=== PATIENT | male | born 1960 | race Caucasian/White ===

== ENCOUNTER 2016-07-02 16:06 | Emergency (ER) | payer MEDICARE, OTHER ==
[~2016-07-02 16:06] MED LIST: AMBIEN10 MG PO; ASPIRIN EC81 MG PO; COLACE 100MG C100 MG PO; COZAAR100 MG PO; DURAGESIC 25 MCG1 EA TD; FENOFIBRATE200 MG PO; HUMALOG100 UNIT/2 SQ; IBUPROFEN400 MG PO; LANTUS100 UNIT/1 SQ; LEVOXYL200 MCG PO; LIPITOR80 MG PO; MIRALAX PACK 171 PKT PO; NEURONTIN 300300 MG PO; NORVASC 5 MG TAB5 MG PO; OSTERA TABLET1 EACH PO; PERCOCET 10-321 EACH PO; TIZANIDINE HCL4 M1 PO
[2016-07-02 19:09] LABS: HEMOGLOBIN 14.3 gm/dl (14.0-17.5); RED BLOOD COUNT 4.43 M/UL (4.20-5.50); WHITE BLOOD COUNT 12.7 K/UL (4.5-11.0)
== END 2016-07-02 21:30 | disposition home or self-care (01) ==
LOC: ER1 16:06
PROVIDERS: Emergency Medicine
DX: J84.9 Interstitial pulmonary disease, unspecified (principal); E11.9 Type 2 diabetes mellitus without complications
CPT/HCPCS: 36415; 80048; 82962; 83690; 85025; 96372; 99285; J1815; J7030; J7050; Q9965

== ENCOUNTER 2020-03-22 12:53 | Inpatient (IN) | payer MEDICARE, OTHER ==
[~2020-03-22] VITALS: Ht 165.1 cm; Wt 88.5 kg
[~2020-03-22 12:53] MED LIST changes: -AMBIEN10 MG PO; +AMBIEN5 MG PO; +CYCLOBENZAPRINE10 MG PO; -NORVASC 5 MG TAB5 MG PO; +NORVASC10 MG PO
[2020-03-22 14:16] LABS: RED BLOOD COUNT 1.9 M/UL (4.20-5.50); WHITE BLOOD COUNT 7.9 K/UL (4.5-11.0)
[2020-03-22 14:35] LABS: BUN/CREATININE RATIO 39 (0-10)
[2020-03-22 14:55] LABS: HEMOGLOBIN 6.1 gm/dl (14.0-17.5)
[2020-03-22] MEDS ORDERED: HYDROCODON-ACE1 EAC6 PO (19:34)
[2020-03-22] MEDS ORDERED: CELEBREX 200MG200 MG PO (19:35)
[2020-03-22] MEDS ORDERED: TRAZODONE HCL100 MG PO (19:38)
[2020-03-22] MEDS ORDERED: LYRICA100 MG PO (19:46)
[2020-03-22] MEDS ORDERED: TRULICITY1.5 MG/0.5 SQ (19:47)
[2020-03-22] MEDS ORDERED: VITAMIN D325 MCG PO (19:49)
[2020-03-23 01:43] LABS: ADENOVIRUS F 40/41 Not Detected (Negative); ASTROVIRUS Not Detected (Negative); CAMPYLOBACTER Not Detected (Negative); CRYPTOSPORIDIUM Not Detected (Negative); E.COLI 0157 Not Detected (Negative); ENTAMOEBA HISTOLYTICA Not Detected (Negative); ENTEROAGGREGATIVE E.COLI (EAEC Not Detected (Negative); ENTEROPATHOGENIC E.COLI (EPEC) Not Detected (Negative); ENTEROTOXIGENIC E.COLI (ETEC) Not Detected (Negative); GIARDIA LAMBLIA Not Detected (Negative); NOROVIRUS GI/GII Not Detected (Negative); PLESIOMONAS SHIGELLOIDES Not Detected (Negative); ROTOVIRUS A Not Detected (Negative); SALMONELLA Not Detected (Negative); SAPOVIRUS Not Detected (Negative); SHIG/ENTEROINVAS.ECOLI (EIEC) Not Detected (Negative); SHIGA-LIK TOX.PRO.E.COLI (STEC Not Detected (Negative); VIBRIO Not Detected (Negative); VIBRIO CHOLERAE Not Detected (Negative); YERSINIA ENTEROCOLITICA Not Detected (Negative)
[2020-03-23 06:17] LABS: BUN/CREATININE RATIO 36 (0-10)
[2020-03-23 07:21] LABS: WHITE BLOOD COUNT 8.1 K/UL (4.5-11.0)
[2020-03-23 07:47] LABS: RED BLOOD COUNT 2.22 M/UL (4.20-5.50)
[2020-03-23 07:48] LABS: HEMOGLOBIN 6.7 gm/dl (14.0-17.5)
[2020-03-23 11:41] LABS: CLOSTRIDIUM DIFFICILE TOX A/B DETECTED (Negative)
[2020-03-23 22:27] LABS: HEMOGLOBIN 8.5 gm/dl (14.0-17.5)
[2020-03-24 05:37] LABS: HEMOGLOBIN 8.4 gm/dl (14.0-17.5)
[2020-03-24 05:42] LABS: RED BLOOD COUNT 2.69 M/UL (4.20-5.50)
[2020-03-24 05:52] LABS: BUN/CREATININE RATIO 19 (0-10)
--- NOTE | 2020-03-26 03:42 | NUR ---
PT K+ RECHECK IS 3.0 FOR THE THIRD TIME IN A ROW. I EXPLAINED TO THE PT THAT K+ TAKEN BY MOUTH IS SOMETIMES ABSORBED BY THE BODY BETTER AND MAY HELP TO BRING HIS K+ LEVEL UP. PT STATES, "I DON'T GIVE A WHAT IS BETTER, I SAID NO AND THAT'S THE FINAL WORD." I TRIED TO CALL DR. MANCERA TO REPORT THE CRITICAL K+ WITH NO ANSWER.
[2020-03-26 09:41] LABS: HEMOGLOBIN 9.7 gm/dl (14.0-17.5); WHITE BLOOD COUNT 8.1 K/UL (4.5-11.0)
[2020-03-26 09:45] LABS: RED BLOOD COUNT 3.08 M/UL (4.20-5.50)
[2020-03-26 10:10] LABS: BUN/CREATININE RATIO 12 (0-10)
[2020-03-27 04:11] LABS: HEMOGLOBIN 8.2 gm/dl (14.0-17.5); WHITE BLOOD COUNT 8.2 K/UL (4.5-11.0)
[2020-03-27 04:15] LABS: RED BLOOD COUNT 2.61 M/UL (4.20-5.50)
[2020-03-27 04:38] LABS: BUN/CREATININE RATIO 14 (0-10)
[2020-03-27 09:27] LABS: HEMOGLOBIN 9.3 gm/dl (14.0-17.5)
[2020-03-27] MEDS ORDERED: VANCOMYCIN HCL125 MG PO (09:31)
[2020-03-27] MEDS ORDERED: PHENERGAN 25 MG25 M1 PO ×2 (09:31→09:38)
[2020-03-27] MEDS ORDERED: ZOFRAN4 MG PO (09:38)
[2020-03-27] MEDS ORDERED: PERCOCET 7.5-31 EACH PO ×2 (09:38→09:41)
[2020-03-27] MEDS ORDERED: PROTONIX40 MG PO (09:55)
== END 2020-03-27 12:36 | disposition home or self-care (01) | DRG 372 ==
LOC: ER1 12:53 → M/S 18:04 → CDU 18:04 → M/S 23:30
PROVIDERS: Emergency Medicine; Internal Medicine; Physician Assistant; ADMIT Internal Medicine
PROC: 30233N1 Transfusion of Nonautologous Red Blood Cells into Peripheral Vein, Percutaneous Approach (ICD-10-PCS; principal; 2020-03-22)
PROC: 30233N1 Transfusion of Nonautologous Red Blood Cells into Peripheral Vein, Percutaneous Approach (ICD-10-PCS; 2020-03-23)
DX: A04.72 Enterocolitis due to Clostridium difficile, not specified as recurrent (principal); D62 Acute posthemorrhagic anemia; Z20.822 Contact with and (suspected) exposure to COVID-19; G89.29 Other chronic pain; M54.9 Dorsalgia, unspecified; E78.5 Hyperlipidemia, unspecified; E66.9 Obesity, unspecified; E03.9 Hypothyroidism, unspecified; I10 Essential (primary) hypertension; G47.00 Insomnia, unspecified; E11.40 Type 2 diabetes mellitus with diabetic neuropathy, unspecified; E55.9 Vitamin D deficiency, unspecified; E87.6 Hypokalemia; Z79.890 Hormone replacement therapy; Z90.49 Acquired absence of other specified parts of digestive tract; Z79.4 Long term (current) use of insulin; Z68.32 Body mass index [BMI] 32.0-32.9, adult; Z85.038 Personal history of other malignant neoplasm of large intestine; Z79.899 Other long term (current) drug therapy
CPT/HCPCS: 36415; 36430; 80048; 80053; 82550; 82553; 82962; 83036; 83735; 84132; 84484; 85014; 85018; 85025; 85027; 86850; 86900; 86901; 86920; 87040; 87324; 87449; 87507; 87635; 90471; 96365; 96372; 96375; 96376; 99284; C9113; J0696; J1170; J2405; J2550; J7050; P9016; Q9967

== ENCOUNTER 2021-06-22 18:10 | Inpatient (IN) | payer MEDICARE, OTHER ==
[~2021-06-22] VITALS: Ht 165.1 cm; Wt 86.2 kg
[~2021-06-22 18:10] MED LIST changes: +CELEBREX 200MG200 MG PO; -COZAAR100 MG PO; +FENOFIBRATE160 MG PO; -FENOFIBRATE200 MG PO; -HUMALOG100 UNIT/2 SQ; +HUMALOG100 UNIT/3 SC; +HYDROCODON-ACE1 EAC6 PO; +LEVOXYL150 MCG PO; -LEVOXYL200 MCG PO; +LOSARTAN-HCTZ1 EACH PO; +LYRICA100 MG PO; +PERCOCET 7.5-31 EACH PO; +PHENERGAN 25 MG25 M1 PO; +PROTONIX40 MG PO; +TRAZODONE HCL50 MG PO; +TRULICITY1.5 MG/0.5 SQ; +VANCOMYCIN HCL125 MG PO; +VITAMIN D325 MCG PO; +ZOFRAN4 MG PO
[2021-06-22 19:01] LABS: HEMOGLOBIN 15.2 gm/dl (14.0-17.5); RED BLOOD COUNT 4.79 M/UL (4.20-5.50); WHITE BLOOD COUNT 5.9 K/UL (4.5-11.0)
[2021-06-22 19:29] LABS: BUN/CREATININE RATIO 14 (0-10)
[2021-06-23] MEDS ORDERED: BUSPIRONE HCL5 MG PO (13:47)
[2021-06-23] MEDS ORDERED: AMITRIPTYLINE H75 MG PO (13:47)
[2021-06-23] MEDS ORDERED: CITALOPRAM HBR40 MG PO (13:48)
[2021-06-23] MEDS ORDERED: FLONASE 0.05% N16 GM (13:49)
[2021-06-23] MEDS ORDERED: FISH OIL 1,0001 EAC1 PO (13:50)
[2021-06-23] MEDS ORDERED: ZOLPIDEM TARTRAT5 MG PO (13:51)
[2021-06-23] MEDS ORDERED: PROTONIX40 MG PO (13:52)
[2021-06-23] MEDS ORDERED: OXYCODON-ACETA1 EAC1 PO (13:57)
[2021-06-23] MEDS ORDERED: ONDANSETRON HCL4 MG PO (13:59)
[2021-06-23] MEDS ORDERED: FLOMAX 0.4 MG0.4 MG PO (14:00)
[2021-06-24 04:34] LABS: BUN/CREATININE RATIO 16 (0-10)
[2021-06-24 04:41] LABS: HEMOGLOBIN 13.4 gm/dl (14.0-17.5); RED BLOOD COUNT 4.2 M/UL (4.20-5.50); WHITE BLOOD COUNT 4.4 K/UL (4.5-11.0)
[2021-06-25 06:39] LABS: HEMOGLOBIN 13.1 gm/dl (14.0-17.5); RED BLOOD COUNT 4.21 M/UL (4.20-5.50)
[2021-06-25 07:11] LABS: BUN/CREATININE RATIO 12 (0-10)
--- NOTE | 2021-06-25 10:48 | NUR ---
PATIENT STATED PAIN MEDICATION WAS INEFFECTIVE, RN MADE DR. CASTRO AWARE. MD STATED HE WOULD ADDRESS PATIENT CONCERNS WITH PATIENT.
[2021-06-26 04:01] LABS: BUN/CREATININE RATIO 13 (0-10)
[2021-06-26 07:08] LABS: HEMOGLOBIN 12.4 gm/dl (14.0-17.5); RED BLOOD COUNT 4.03 M/UL (4.20-5.50)
[2021-06-27 03:30] LABS: HEMOGLOBIN 12.8 gm/dl (14.0-17.5); RED BLOOD COUNT 4.09 M/UL (4.20-5.50); WHITE BLOOD COUNT 4.9 K/UL (4.5-11.0)
[2021-06-27 03:54] LABS: BUN/CREATININE RATIO 13 (0-10)
[2021-06-28 06:19] LABS: HEMOGLOBIN 12.9 gm/dl (14.0-17.5); RED BLOOD COUNT 4.02 M/UL (4.20-5.50); WHITE BLOOD COUNT 4.5 K/UL (4.5-11.0)
[2021-06-28 06:44] LABS: BUN/CREATININE RATIO 15 (0-10)
[2021-06-29 03:49] LABS: HEMOGLOBIN 12.6 gm/dl (14.0-17.5); RED BLOOD COUNT 3.98 M/UL (4.20-5.50)
[2021-06-29 03:52] LABS: WHITE BLOOD COUNT 5.9 K/UL (4.5-11.0)
[2021-06-29 04:09] LABS: BUN/CREATININE RATIO 17 (0-10)
[2021-06-29] MEDS ORDERED: TRAMADOL HCL50 MG PO (14:16)
== END 2021-06-29 16:20 | disposition home or self-care (01) | DRG 439 ==
LOC: ER1 18:10 → CDU 06-23 01:50 → MED SURG 4 06-23 02:14
PROVIDERS: Emergency Medicine; Internal Medicine; ADMIT Internal Medicine
DX: K85.90 Acute pancreatitis without necrosis or infection, unspecified (principal); E87.2 Acidosis; E66.9 Obesity, unspecified; E11.9 Type 2 diabetes mellitus without complications; Z20.822 Contact with and (suspected) exposure to COVID-19; M54.9 Dorsalgia, unspecified; G89.29 Other chronic pain; E78.5 Hyperlipidemia, unspecified; E03.9 Hypothyroidism, unspecified; E55.9 Vitamin D deficiency, unspecified; K21.9 Gastro-esophageal reflux disease without esophagitis; N40.0 Benign prostatic hyperplasia without lower urinary tract symptoms; D64.9 Anemia, unspecified; I10 Essential (primary) hypertension; K43.9 Ventral hernia without obstruction or gangrene; Z85.038 Personal history of other malignant neoplasm of large intestine; Z98.890 Other specified postprocedural states; Z68.31 Body mass index [BMI] 31.0-31.9, adult; Z93.2 Ileostomy status
CPT/HCPCS: 36415; 71045; 80048; 80053; 80061; 81001; 82150; 82550; 82553; 82962; 83036; 83690; 83735; 84100; 84484; 85025; 86140; 93005; 96374; 96375; 96376; 99285; C9113; J1650; J2270; J2405; J7030; Q9967; U0002

== ENCOUNTER 2021-07-04 14:07 | Emergency (ER) | payer MEDICARE, OTHER ==
[~2021-07-04 14:07] MED LIST changes: +AMITRIPTYLINE H75 MG PO; +BUSPIRONE HCL5 MG PO; +CITALOPRAM HBR40 MG PO; +FISH OIL 1,0001 EAC1 PO; +FLOMAX 0.4 MG0.4 MG PO; +FLONASE 0.05% N16 GM; +ONDANSETRON HCL4 MG PO; +OXYCODON-ACETA1 EAC1 PO; +TRAMADOL HCL50 MG PO; +ZOLPIDEM TARTRAT5 MG PO
[2021-07-04 15:10] LABS: HEMOGLOBIN 13.9 gm/dl (14.0-17.5); RED BLOOD COUNT 4.32 M/UL (4.20-5.50); WHITE BLOOD COUNT 6.2 K/UL (4.5-11.0)
[2021-07-04 15:41] LABS: BUN/CREATININE RATIO 23 (0-10)
== END 2021-07-04 18:20 | disposition home or self-care (01) ==
LOC: ER1 14:07
PROVIDERS: Physician Assistant
DX: R10.9 Unspecified abdominal pain (principal); E11.65 Type 2 diabetes mellitus with hyperglycemia; R10.812 Left upper quadrant abdominal tenderness; I10 Essential (primary) hypertension; E78.5 Hyperlipidemia, unspecified
CPT/HCPCS: 71045; 80053; 82150; 82550; 82553; 82962; 83690; 84484; 85025; 93005; 96374; 96375; 99284; J2270; J2405

== ENCOUNTER 2021-07-11 14:49 | Inpatient (IN) | payer MEDICARE, OTHER ==
[~2021-07-11] VITALS: Ht 165.1 cm; Wt 88.5 kg
[~2021-07-11 14:49] MED LIST changes: -NORVASC10 MG PO; +NORVASC5 MG PO
[2021-07-11 16:22] LABS: HEMOGLOBIN 14.3 gm/dl (14.0-17.5); RED BLOOD COUNT 4.43 M/UL (4.20-5.50); WHITE BLOOD COUNT 8.8 K/UL (4.5-11.0)
[2021-07-11 16:43] LABS: BUN/CREATININE RATIO 29 (0-10)
[2021-07-12] MEDS ORDERED: ROXICODONE TAB 55 MG PO (18:28)
[2021-07-13 03:33] LABS: HEMOGLOBIN 13.1 gm/dl (14.0-17.5); RED BLOOD COUNT 4.06 M/UL (4.20-5.50)
[2021-07-13 03:40] LABS: WHITE BLOOD COUNT 6.2 K/UL (4.5-11.0)
[2021-07-13 03:43] LABS: BUN/CREATININE RATIO 31 (0-10)
[2021-07-15 03:16] LABS: HEMOGLOBIN 13.4 gm/dl (14.0-17.5); RED BLOOD COUNT 4.21 M/UL (4.20-5.50)
[2021-07-15 03:31] LABS: WHITE BLOOD COUNT 4.2 K/UL (4.5-11.0)
[2021-07-15 03:37] LABS: BUN/CREATININE RATIO 16 (0-10)
[2021-07-15 11:50] LABS: BUN/CREATININE RATIO 14 (0-10)
[2021-07-16 02:54] LABS: HEMOGLOBIN 13.1 gm/dl (14.0-17.5); RED BLOOD COUNT 4.11 M/UL (4.20-5.50); WHITE BLOOD COUNT 4.9 K/UL (4.5-11.0)
[2021-07-16 03:48] LABS: BUN/CREATININE RATIO 10 (0-10)
[2021-07-17 06:43] LABS: BUN/CREATININE RATIO 9 (0-10)
[2021-07-17] MEDS ORDERED: AMITRIPTYLINE H75 MG PO (09:36)
[2021-07-17] MEDS ORDERED: BUSPIRONE HCL5 MG PO (09:36)
[2021-07-17] MEDS ORDERED: COZAAR 50MG TAB50 MG PO (09:36)
[2021-07-17] MEDS ORDERED: PROTONIX40 MG PO (09:36)
[2021-07-17] MEDS ORDERED: FENOFIBRATE160 MG PO (09:36)
[2021-07-17] MEDS ORDERED: CITALOPRAM HBR40 MG PO (09:36)
[2021-07-17] MEDS ORDERED: LIPITOR80 MG PO (09:36)
[2021-07-17] MEDS ORDERED: LEVOXYL150 MCG PO (09:36)
[2021-07-17] MEDS ORDERED: FLOMAX 0.4 MG0.4 MG PO (09:36)
[2021-07-17] MEDS ORDERED: AMLODIPINE BESYL5 MG PO (09:36)
== END 2021-07-17 11:58 | disposition home or self-care (01) | DRG 440 ==
LOC: ER1 14:49 → CDU 07-12 06:04 → MED SURG 4 07-12 06:04
PROVIDERS: Internal Medicine; Physician Assistant; ADMIT Internal Medicine
DX: K85.00 Idiopathic acute pancreatitis without necrosis or infection (principal); K43.9 Ventral hernia without obstruction or gangrene; E78.5 Hyperlipidemia, unspecified; I10 Essential (primary) hypertension; K86.1 Other chronic pancreatitis; E66.9 Obesity, unspecified; E03.9 Hypothyroidism, unspecified; E78.1 Pure hyperglyceridemia; E11.40 Type 2 diabetes mellitus with diabetic neuropathy, unspecified; K76.0 Fatty (change of) liver, not elsewhere classified; F41.9 Anxiety disorder, unspecified; E11.65 Type 2 diabetes mellitus with hyperglycemia; Z85.038 Personal history of other malignant neoplasm of large intestine; Z79.899 Other long term (current) drug therapy; Z98.890 Other specified postprocedural states; Z93.2 Ileostomy status; Z79.4 Long term (current) use of insulin; Z68.32 Body mass index [BMI] 32.0-32.9, adult
CPT/HCPCS: 36415; 76705; 80048; 80053; 81001; 82150; 82550; 82553; 82962; 83690; 83735; 84484; 85025; 85027; 93005; 96372; 96374; 96375; 96376; 99285; G0378; J1170; J1650; J2270; J2405; J7030; Q9967; U0002

== ENCOUNTER 2021-11-05 12:45 | Emergency (ER) | payer MEDICARE, OTHER | END 2021-11-05 16:09 | disposition left against medical advice (07) | LOC: ER1 12:45 | DX: Z53.21 Procedure and treatment not carried out due to patient leaving prior to being seen by health care provider (principal) ==

== ENCOUNTER → 2021-11-05 | Outpatient (CLI) | payer MEDICARE, OTHER ==
[~2021-11-05] MED LIST changes: +AMLODIPINE BESYL5 MG PO; +COZAAR 50MG TAB50 MG PO; +ROXICODONE TAB 55 MG PO
[2021-11-05 12:55] LABS: HEMOGLOBIN 16.4 gm/dl (14.0-17.5); RED BLOOD COUNT 4.87 M/UL (4.20-5.50); WHITE BLOOD COUNT 6.1 K/UL (4.5-11.0)
[2021-11-05 13:24] LABS: BUN/CREATININE RATIO 17 (0-10)
== END ==
LOC: LAB 12:21
PROVIDERS: Nurse Practitioner Family
DX: I10 Essential (primary) hypertension (principal); N40.0 Benign prostatic hyperplasia without lower urinary tract symptoms; E53.8 Deficiency of other specified B group vitamins; E55.9 Vitamin D deficiency, unspecified; M54.50 Low back pain, unspecified; G89.29 Other chronic pain
CPT/HCPCS: 36415; 80053; 80061; 82150; 82607; 83690; 84153; 84439; 84443; 85025

== ENCOUNTER 2021-12-04 07:51 | Emergency (ER) | payer MEDICARE, OTHER ==
[2021-12-04 09:14] LABS: HEMOGLOBIN 14.8 gm/dl (14.0-17.5); RED BLOOD COUNT 4.48 M/UL (4.20-5.50); WHITE BLOOD COUNT 6.1 K/UL (4.5-11.0)
[2021-12-04 09:37] LABS: BUN/CREATININE RATIO 22 (0-10)
== END 2021-12-04 11:15 | disposition home or self-care (01) ==
LOC: ER1 07:51
PROVIDERS: Nurse Practitioner
DX: S06.0X0A Concussion without loss of consciousness, initial encounter (principal); S00.81XA Abrasion of other part of head, initial encounter; I11.9 Hypertensive heart disease without heart failure; E11.9 Type 2 diabetes mellitus without complications; W10.9XXA Fall (on) (from) unspecified stairs and steps, initial encounter; Y92.009 Unspecified place in unspecified non-institutional (private) residence as the place of occurrence of the external cause
CPT/HCPCS: 70450; 72125; 73030; 80053; 82140; 82550; 82553; 84484; 85025; 93005; 99284